=== PATIENT | male | born 1990 | race Caucasian/White ===

== ENCOUNTER 2017-12-04 17:10 | Emergency (ER) | payer SELFPAY ==
[~2017-12-04] VITALS: Ht 152.4 cm; Wt 85.7 kg
[2017-12-04 17:16] VITALS: BP 139/61
== END 2017-12-04 19:08 | disposition home or self-care (01) ==
LOC: ED 17:10
DX: S01.01XD Laceration without foreign body of scalp, subsequent encounter (principal); S61.412D Laceration without foreign body of left hand, subsequent encounter; X58.XXXD Exposure to other specified factors, subsequent encounter

== ENCOUNTER 2017-12-09 13:29 | Emergency (ER) | payer SELFPAY ==
[~2017-12-09] VITALS: Ht 175.3 cm; Wt 86.2 kg
[2017-12-09 14:13] VITALS: BP 121/76; Ht 175.3 cm; Wt 86.2 kg
== END 2017-12-09 15:49 | disposition home or self-care (01) ==
LOC: ED 13:29
DX: S01.01XD Laceration without foreign body of scalp, subsequent encounter (principal); S61.412D Laceration without foreign body of left hand, subsequent encounter; X58.XXXD Exposure to other specified factors, subsequent encounter

== ENCOUNTER 2019-04-06 23:05 | Emergency (ER) | payer SELFPAY ==
[~2019-04-06] VITALS: Ht 170.2 cm; Wt 89.8 kg
[2019-04-06 23:22] VITALS: BP 122/85; Ht 170.2 cm; Wt 89.8 kg
== END 2019-04-07 01:58 | disposition left against medical advice (07) ==
LOC: ED 23:05
DX: Z53.21 Procedure and treatment not carried out due to patient leaving prior to being seen by health care provider (principal)